=== PATIENT | female | born 1965 | race Caucasian/White ===

== ENCOUNTER → 2016-10-05 | Outpatient (CLI) | payer MEDICAID ==
[2016-10-05 08:41] LABS: ABSOLUTE EOSINOPHILS # (AUTO) 0.2 10^3/uL (0.0-0.6); ABSOLUTE MONOCYTES (AUTO) 0.6 10^3/uL (0.1-1.4); BASOPHILS % (AUTO) 0.6 % (0-2); EOSINOPHILS % (AUTO) 2.6 % (0-6); HEMATOCRIT 40.4 % (36.0-47.0); HEMOGLOBIN 13.4 g/dL (12.0-15.5); HGB HCT DIFFERENCE -0.2; MEAN CORPUSCULAR HEMOGLOBIN 32.8 pg (27.0-33.4); MEAN CORPUSCULAR HGB CONC 33.1 g/dL (32.0-36.0); MEAN CORPUSCULAR VOLUME 99 fl (80-97); RED BLOOD COUNT 4.08 10^6/uL (3.72-5.28); RED CELL DISTRIBUTION WIDTH 13.1 % (11.5-14.0); SEGMENTED NEUTROPHILS % (AUTO) 34.8 % (42-78); WHITE BLOOD COUNT 5.8 10^3/uL (4.0-10.5)
[2016-10-05 09:00] LABS: ALANINE AMINOTRANSFERASE 29 U/L (9-52); ALKALINE PHOSPHATASE 100 U/L (38-126); ANION GAP 10 (5-19); ASPARTATE AMINO TRANSFERASE 22 U/L (14-36); BILIRUBIN,TOTAL 0.4 mg/dL (0.2-1.3); BLOOD UREA NITROGEN 11 mg/dL (7-20); CALCIUM 9.3 mg/dL (8.4-10.2); CARBON DIOXIDE 24 mmol/L (22-30); CHLORIDE 110 mmol/L (98-107); CHOLESTEROL 210.63 mg/dL (0-200); Direct HDL 65 mg/dL (>40); GLUCOSE 98 mg/dL (75-110); POTASSIUM 4.4 mmol/L (3.6-5.0); SODIUM 144.4 mmol/L (137-145); TOTAL PROTEIN 6.8 g/dL (6.3-8.2); TRIGLYCERIDES 145 mg/dL (<150)
[2016-10-05 09:10] LABS: DIRECT LDL 133 mg/dL (<100)
[2016-10-05 09:16] LABS: FREE T3 4.16 pg/mL (2.77-5.27)
[2016-10-05 09:29] LABS: THYROID STIMULATING HORMONE 11.2 uIU/mL (0.47-4.68)
== END ==
LOC: LAB 08:26
PROVIDERS: ATTEND Internal Medicine
DX: R53.83 Other fatigue (principal); E66.9 Obesity, unspecified; R73.9 Hyperglycemia, unspecified; K21.9 Gastro-esophageal reflux disease without esophagitis; I10 Essential (primary) hypertension
CPT/HCPCS: 36415; 80053; 80061; 83036; 84439; 84443; 84481; 85025

== ENCOUNTER → 2016-10-23 | Outpatient (CLI) | payer MEDICAID ==
[2016-10-23 19:10] LABS: FREE T3 3.77 pg/mL (2.77-5.27)
[2016-10-23 19:23] LABS: THYROID STIMULATING HORMONE 3.67 uIU/mL (0.47-4.68)
== END ==
LOC: OD 16:58
PROVIDERS: ATTEND Internal Medicine
DX: E03.9 Hypothyroidism, unspecified (principal)
CPT/HCPCS: 36415; 84439; 84443; 84481

== ENCOUNTER 2016-11-04 18:03 | Emergency (ER) | payer MEDICAID ==
--- NOTE | 2016-11-04 18:13 | ER Document Report ---
ED Medical Screen (RME) - General Stated Complaint: FLU LIKE SYMPTOM Time seen by provider: 18:10 Mode of Arrival: Ambulatory Information source: Patient Notes: 51-year-old nonsmoker female complaining of generalized myalgias, decreased appetite, congestion, shortness of breath, cough and thirst for 4 days. Temp. 102.9 in triage. I have greeted and performed a rapid initial assessment of this patient. A comprehensive ED assessment, evaluation of the patient, analysis of test results , and completion of the medical decision making process will be conducted by additional ED providers. TRAVEL OUTSIDE OF THE [place] IN LAST 30 DAYS: No - Related Data Allergies/Adverse Reactions: codeine [Codeine] Allergy (Severe, Verified 11/04/16 18:10) Generalized Itching latex [Latex] Allergy (Verified 11/04/16 18:10) rash tramadol [Tramadol] Allergy (Verified 11/04/16 18:10) Generalized Itching Past Medical History - Past Medical History Cardiac Medical History: Reports: Hx Hypercholesterolemia - DX A MONTH AGO, Hx Hypertension - on meds Denies: Hx Coronary Artery Disease, Hx Heart Attack Pulmonary Medical History: Denies: Hx Asthma, Hx Bronchitis, Hx COPD, Hx Pneumonia Neurological Medical History: Denies: Hx Cerebrovascular Accident, Hx Seizures Renal/ Medical History: Reports: Hx Kidney Stones, Hx Ovarian Cysts Musculoskeltal Medical History: Reports Hx Arthritis Psychiatric Medical History: Reports: Hx Anxiety - DX A TEENAGERS, Hx Bipolar Disorder - SINCE A TEENAGERS, Hx Depression Past Surgical History: Reports: Hx Adenoidectomy, Hx Orthopedic Surgery - right knee, back, jaw, Hx Tubal Ligation - Immunizations Hx Diphtheria, Pertussis, Tetanus Vaccination: Yes Physical Exam - Vital signs Vitals: Temp Pulse Resp BP Pulse Ox 102.9 F H 96 18 133/82 H 96 11/04/16 18:07 11/04/16 18:07 11/04/16 18:07 11/04/16 18:07 11/04/16 18:07 Course - Vital Signs Vital signs: Temp Pulse Resp BP Pulse Ox 102.9 F H 96 18 133/82 H 96 11/04/16 18:07 11/04/16 18:07 11/04/16 18:07 11/04/16 18:07 11/04/16 18:07
[2016-11-04] MEDS ORDERED: ACETAMINOPHEN 325 MG TABLET PO ONE (18:31)
[2016-11-04 18:34] LABS: ABSOLUTE BASOPHILS # (AUTO) 0.1 10^3/uL (0.0-0.2); ABSOLUTE EOSINOPHILS # (AUTO) 0.2 10^3/uL (0.0-0.6); ABSOLUTE MONOCYTES (AUTO) 0.8 10^3/uL (0.1-1.4); ABSOLUTE NEUT (AUTO) 4.9 10^3/uL (1.7-8.2); BASOPHILS % (AUTO) 0.6 % (0-2); EOSINOPHILS % (AUTO) 2.9 % (0-6); HEMATOCRIT 42.2 % (36.0-47.0); HEMOGLOBIN 13.8 g/dL (12.0-15.5); HGB HCT DIFFERENCE -0.8; LYMPHOCYTES % (AUTO) 25.1 % (13-45); MEAN CORPUSCULAR HEMOGLOBIN 32.2 pg (27.0-33.4); MEAN CORPUSCULAR HGB CONC 32.6 g/dL (32.0-36.0); MEAN CORPUSCULAR VOLUME 99 fl (80-97); MONOCYTES % (AUTO) 10.1 % (3-13); RED BLOOD COUNT 4.27 10^6/uL (3.72-5.28); RED CELL DISTRIBUTION WIDTH 13.6 % (11.5-14.0); SEGMENTED NEUTROPHILS % (AUTO) 61.3 % (42-78); WHITE BLOOD COUNT 8.1 10^3/uL (4.0-10.5)
[2016-11-04 18:38] LABS: APPEARANCE,URINE SLIGHTLY-CLOUDY; BILIRUBIN,URINE NEGATIVE (NEGATIVE); GLUCOSE, URINE NEGATIVE (NEGATIVE); KETONES,URINE NEGATIVE (NEGATIVE); LEUKOCYTE ESTERASE,URINE NEGATIVE (NEGATIVE); NITRITE,URINE NEGATIVE (NEGATIVE); PROTEIN,URINE NEGATIVE (NEGATIVE); URINE SPECIFIC GRAVITY 1.013; UROBILINOGEN,URINE NEGATIVE mg/dL (<2.0)
[2016-11-04 18:53] LABS: ALANINE AMINOTRANSFERASE 45 U/L (9-52); ALBUMIN 3.9 g/dL (3.5-5.0); ALKALINE PHOSPHATASE 125 U/L (38-126); ANION GAP 11 (5-19); ASPARTATE AMINO TRANSFERASE 50 U/L (14-36); BILIRUBIN,TOTAL 0.3 mg/dL (0.2-1.3); BLOOD UREA NITROGEN 14 mg/dL (7-20); CALCIUM 8.9 mg/dL (8.4-10.2); CARBON DIOXIDE 23 mmol/L (22-30); CHLORIDE 108 mmol/L (98-107); GLUCOSE 118 mg/dL (75-110); POTASSIUM 4.4 mmol/L (3.6-5.0); SODIUM 142.1 mmol/L (137-145); TOTAL PROTEIN 7.1 g/dL (6.3-8.2)
[2016-11-04 19:02] LABS: URINE BARBITURATES SCREEN UNCONFIRMED POSITIVE; URINE METHADONE SCREEN NEGATIVE; URINE OPIATES LOW NEGATIVE; URINE PHENCYCLIDINE SCREEN NEGATIVE
[2016-11-04] MEDS ORDERED: NORMAL SALINE 1000 ML 1,000 ML IV ONE ×2 (19:12→20:29)
[2016-11-04] MEDS ORDERED: IBUPROFEN 800 MG TABLET PO ONE (19:34)
--- NOTE | 2016-11-04 19:36 | ER Document Report ---
ED Fever - General Mode of Arrival: Ambulatory Information source: Patient TRAVEL OUTSIDE OF THE [place] IN LAST 30 DAYS: No - HPI Patient complains to provider of: fever Associated symptoms: Other - See above <GALEN ROE - Last Filed: 11/04/16 19:40> <BEA MAO - Last Filed: 11/04/16 21:39> - General Chief Complaint: Fever Stated Complaint: fever Notes: Patient is a 51 year old female, with a past medical history including bipolar disorder and HTN, who presents to the emergency department complaining of fever. Patient also complains of cough, congestion, abdominal pain, and chills. Patient states that she also has chronic back pain and urinary incontinence. Patient states that she did receive a flu shot this year. (GALEN ROE) - Related Data Allergies/Adverse Reactions: codeine [Codeine] Allergy (Severe, Verified 11/04/16 18:10) Generalized Itching latex [Latex] Allergy (Verified 11/04/16 18:10) rash tramadol [Tramadol] Allergy (Verified 11/04/16 18:10) Generalized Itching Past Medical History - General Information source: Patient - Social History Smoking Status: Former Smoker Chew tobacco use (# tins/day): No Frequency of alcohol use: None Drug Abuse: None Family History: Reviewed & Not Pertinent Patient has suicidal ideation: No Patient has homicidal ideation: No - Past Medical History Cardiac Medical History: Reports: Hx Hypercholesterolemia - DX A MONTH AGO, Hx Hypertension - on meds Renal/ Medical History: Reports: Hx Kidney Stones, Hx Ovarian Cysts Musculoskeltal Medical History: Reports Hx Arthritis Psychiatric Medical History: Reports: Hx Anxiety - DX A TEENAGERS, Hx Bipolar Disorder - SINCE A TEENAGERS, Hx Depression Past Surgical History: Reports: Hx Adenoidectomy, Hx Orthopedic Surgery - right knee, back, jaw, Hx Tubal Ligation - Immunizations Hx Diphtheria, Pertussis, Tetanus Vaccination: Yes <GALEN ROE - Last Filed: 11/04/16 19:40> Review of Systems - Review of Systems Constitutional: See HPI, Chills, Fever EENT: See HPI, Nose congestion Cardiovascular: No symptoms reported Respiratory: See HPI, Cough Gastrointestinal: See HPI, Abdominal pain Genitourinary: No symptoms reported Female Genitourinary: No symptoms reported Musculoskeletal: No symptoms reported Skin: No symptoms reported Hematologic/Lymphatic: No symptoms reported Neurological/Psychological: No symptoms reported -: Yes All other systems reviewed and negative <GALEN ROE - Last Filed: 11/04/16 19:40> Physical Exam - Vital signs Interpretation: Normal - General General appearance: Appears well, Alert - HEENT Head: Normocephalic, Atraumatic Eyes: Normal Pupils: PERRL - Respiratory Respiratory status: No respiratory distress Chest status: Nontender Breath sounds: Normal Chest palpation: Normal - Cardiovascular Rhythm: Regular Heart sounds: Normal auscultation Murmur: No - Abdominal Inspection: Normal Distension: No distension Bowel sounds: Normal Tenderness: Nontender Organomegaly: No organomegaly - Back Back: Normal, Nontender - Extremities General upper extremity: Normal inspection, Nontender, Normal color, Normal ROM , Normal temperature General lower extremity: Normal inspection, Nontender, Normal color, Normal ROM , Normal temperature, Normal weight bearing. No: Gui's sign - Neurological Neuro grossly intact: Yes Cognition: Normal Orientation: AAOx4 [place] Coma Scale Eye Opening: Spontaneous Antonio Coma Scale Verbal: Oriented [place] Coma Scale Motor: Obeys Commands Antonio Coma Scale Total: 15 Speech: Normal Motor strength normal: LUE, RUE, LLE, RLE Sensory: Normal - Psychological Associated symptoms: Normal affect, Normal mood - Skin Skin Temperature: Warm Skin Moisture: Dry Skin Color: Normal <GALEN ROE - Last Filed: 11/04/16 19:40> Course - Laboratory Result Diagrams: 11/04/16 18:15 11/04/16 18:15 <GALEN ROE - Last Filed: 11/04/16 19:40> - Laboratory Result Diagrams: 11/04/16 18:15 11/04/16 18:15 <BEA MAO - Last Filed: 11/04/16 21:39> - Vital Signs Vital signs: Temp Pulse Resp BP Pulse Ox 101.8 F H 96 20 87/63 L 95 11/04/16 19:30 11/04/16 18:07 11/04/16 20:01 11/04/16 20:01 11/04/16 20:01 - Laboratory Laboratory results interpreted by me: 11/04/16 11/04/16 18:15 18:15 MCV 99 H Chloride 108 H Est GFR (Non-Af Amer) 59 L Glucose 118 H AST 50 H Discharge <GALEN ROE - Last Filed: 11/04/16 19:40> <BEA MAO - Last Filed: 11/04/16 21:39> - Discharge Clinical Impression: Influenza A Condition: Stable Disposition: HOME, SELF-CARE Instructions: Influenza ([facility]), Fever ([facility]) Referrals: GUILLERMO GAINES MD [Primary Care Provider] - 11/06/16 Scribe Documentation - Scribe Written by Derek:: derek Win, 11/04/16, 1941 acting as scribe for :: Willis <GALEN ROE - Last Filed: 11/04/16 19:40>
[2016-11-04 21:57] VITALS: BP 104/65
--- NOTE | 2016-11-04 23:23 | ER Document Report ---
ED Fever - General Chief Complaint: Fever Stated Complaint: FLU LIKE SYMPTOM Mode of Arrival: Ambulatory Notes: Patient is a 51 year old female, with a past medical history including bipolar disorder and HTN, who presents to the emergency department complaining of fever. Patient also complains of cough, congestion, abdominal pain, and chills. Patient states that she also has chronic back pain and urinary incontinence. Patient states that she did receive a flu shot this year. TRAVEL OUTSIDE OF THE [place] IN LAST 30 DAYS: No - Related Data Allergies/Adverse Reactions: codeine [Codeine] Allergy (Severe, Verified 11/04/16 18:10) Generalized Itching latex [Latex] Allergy (Verified 11/04/16 18:10) rash tramadol [Tramadol] Allergy (Verified 11/04/16 18:10) Generalized Itching Past Medical History - General Information source: Patient - Social History Smoking Status: Former Smoker Chew tobacco use (# tins/day): No Frequency of alcohol use: None Drug Abuse: None Family History: Reviewed & Not Pertinent Patient has suicidal ideation: No Patient has homicidal ideation: No - Past Medical History Cardiac Medical History: Reports: Hx Hypercholesterolemia - DX A MONTH AGO, Hx Hypertension - on meds Denies: Hx Coronary Artery Disease, Hx Heart Attack Pulmonary Medical History: Denies: Hx Asthma, Hx Bronchitis, Hx COPD, Hx Pneumonia Neurological Medical History: Denies: Hx Cerebrovascular Accident, Hx Seizures Renal/ Medical History: Reports: Hx Kidney Stones, Hx Ovarian Cysts. Denies: Hx Peritoneal Dialysis Musculoskeltal Medical History: Reports Hx Arthritis Psychiatric Medical History: Reports: Hx Anxiety - DX A TEENAGERS, Hx Bipolar Disorder - SINCE A TEENAGERS, Hx Depression Past Surgical History: Reports: Hx Adenoidectomy, Hx Orthopedic Surgery - right knee, back, jaw, Hx Tubal Ligation - Immunizations Hx Diphtheria, Pertussis, Tetanus Vaccination: Yes Review of Systems - Review of Systems -: Yes All other systems reviewed and negative Physical Exam - Vital signs Vitals: Temp Pulse Resp BP Pulse Ox 102.9 F H 96 18 133/82 H 96 11/04/16 18:07 11/04/16 18:07 11/04/16 18:07 11/04/16 18:07 11/04/16 18:07 Interpretation: Tachycardic, Febrile - General General appearance: Alert In distress: Mild - Respiratory Respiratory status: No respiratory distress Breath sounds: Normal - Cardiovascular Rhythm: Regular, Tachycardia - Abdominal Inspection: Normal Tenderness: Nontender - Back Back: Normal, Nontender - Extremities General upper extremity: Normal inspection, Normal ROM General lower extremity: Normal inspection, Normal ROM - Neurological Cognition: Confused Antonio Coma Scale Eye Opening: Spontaneous Antonio Coma Scale Verbal: Confused [place] Coma Scale Motor: Obeys Commands Antonio Coma Scale Total: 14 - Skin Skin Temperature: Hot Course - Re-evaluation Re-evalutation: 11/04/16 Patient is a 51-year-old female who comes in with fever and initial confusion. Resolved this her fever had resolved. Patient has been hydrated. No respiratory distress. Patient is influenza a positive. Feels better after medications and fluids. She is instructed to take medications for fever at home. Patient has had the symptoms for a few days and is not in the time frame for Tamiflu. Patient was ambulated and maintained her oxygen saturations. No lightheadedness. Vital stable. Patient is to follow-up with her primary care doctor and return immediately if she has any worsening or concerning symptoms. Of note, patient cyst x-ray said possible infiltrate. Clinically, the patient does not sound like she has pneumonia. - Vital Signs Vital signs: Temp Pulse Resp BP Pulse Ox 98.7 F 96 15 104/65 95 11/04/16 22:01 11/04/16 18:07 11/04/16 21:19 11/04/16 21:19 11/04/16 21:19 - Laboratory Result Diagrams: 11/04/16 18:15 11/04/16 18:15 Laboratory results interpreted by me: 11/04/16 11/04/16 18:15 18:15 MCV 99 H Chloride 108 H Est GFR (Non-Af Amer) 59 L Glucose 118 H AST 50 H - Diagnostic Test Radiology reviewed: Image reviewed, Reports reviewed Discharge - Discharge Clinical Impression: Influenza A Condition: Stable Disposition: HOME, SELF-CARE Instructions: Fever ([facility]), Influenza ([facility]) Referrals: GUILLERMO GAINES MD [Primary Care Provider] - 11/06/16
== END 2016-11-04 22:01 | disposition home or self-care (01) ==
LOC: ER 18:03
DX: J11.1 Influenza due to unidentified influenza virus with other respiratory manifestations (principal); I10 Essential (primary) hypertension; R41.0 Disorientation, unspecified; R50.9 Fever, unspecified; R00.0 Tachycardia, unspecified; R05 Cough; R10.9 Unspecified abdominal pain; R32 Unspecified urinary incontinence; M54.9 Dorsalgia, unspecified; G89.29 Other chronic pain; Z88.5 Allergy status to narcotic agent; Z91.040 Latex allergy status; Z87.891 Personal history of nicotine dependence; Z87.442 Personal history of urinary calculi; Z87.42 Personal history of other diseases of the female genital tract; Z98.51 Tubal ligation status
CPT/HCPCS: 99284; 36415; 87040; 87086; 85025; 80053; 81001; 80307; 83605; 87804; 71020; 70450; J3490 ×2; J7030

== ENCOUNTER → 2017-01-30 | Outpatient (CLI) | payer MEDICAID ==
[2017-01-30 11:58] LABS: HEMATOCRIT 41.3 % (36.0-47.0); HEMOGLOBIN 13.6 g/dL (12.0-15.5); HGB HCT DIFFERENCE -0.5; MEAN CORPUSCULAR HEMOGLOBIN 32.2 pg (27.0-33.4); MEAN CORPUSCULAR HGB CONC 32.9 g/dL (32.0-36.0); MEAN CORPUSCULAR VOLUME 98 fl (80-97); RED BLOOD COUNT 4.21 10^6/uL (3.72-5.28); RED CELL DISTRIBUTION WIDTH 14.4 % (11.5-14.0); WHITE BLOOD COUNT 5.7 10^3/uL (4.0-10.5)
[2017-01-30 12:14] LABS: ANION GAP 11 (5-19); BLOOD UREA NITROGEN 13 mg/dL (7-20); CALCIUM 9.6 mg/dL (8.4-10.2); CARBON DIOXIDE 22 mmol/L (22-30); CHLORIDE 110 mmol/L (98-107); CREATININE RESULT 0.87 mg/dL (0.52-1.25); Direct HDL 52 mg/dL (>40); GLUCOSE 90 mg/dL (75-110); POTASSIUM 4.3 mmol/L (3.6-5.0); SODIUM 143.3 mmol/L (137-145); TRIGLYCERIDES 125 mg/dL (<150)
[2017-01-30 12:25] LABS: DIRECT LDL 161 mg/dL (<100)
[2017-01-30 13:20] LABS: FOLATE 5.91 ng/mL (>2.76)
[2017-01-31 07:20] LABS: VITAMIN D 25-HYDROXY 19.2 ng/mL (30.0-100.0)
[2017-01-31 14:55] LABS: VITAMIN D 1,25 DIHYDROXY 24.3 pg/mL (19.9-79.3)
== END ==
LOC: LAB 11:15
DX: F31.70 Bipolar disorder, currently in remission, most recent episode unspecified (principal); Z79.899 Other long term (current) drug therapy
CPT/HCPCS: 36415; 80048; 80061; 82306; 82607; 82652; 82746; 83036; 84439; 84443; 85027

== ENCOUNTER 2017-02-21 17:17 | Emergency (ER) | payer MEDICAID ==
[2017-02-21] MEDS ORDERED: IPRATROPIUM/ALBUTEROL 0.5-2.5 MG/3 ML AMPUL NEB ONE (18:47)
--- NOTE | 2017-02-21 18:50 | ER Document Report ---
ED Medical Screen (RME) - General Chief Complaint: Chest Congestion Stated Complaint: FEVER, COUGHING Time Seen by Provider: 02/21/17 18:47 Mode of Arrival: Ambulatory Information source: Patient Notes: 52-year-old female presents with fever, coughing, headache and chest wall pain. TRAVEL OUTSIDE OF THE [place] IN LAST 30 DAYS: No - Related Data Allergies/Adverse Reactions: codeine [Codeine] Allergy (Severe, Verified 02/21/17 17:22) Generalized Itching latex [Latex] Allergy (Verified 02/21/17 17:22) rash tramadol [Tramadol] Allergy (Verified 02/21/17 17:22) Generalized Itching Past Medical History - Past Medical History Cardiac Medical History: Reports: Hx Hypercholesterolemia - DX A MONTH AGO, Hx Hypertension - on meds Denies: Hx Coronary Artery Disease, Hx Heart Attack Pulmonary Medical History: Denies: Hx Asthma, Hx Bronchitis, Hx COPD, Hx Pneumonia Neurological Medical History: Denies: Hx Cerebrovascular Accident, Hx Seizures Renal/ Medical History: Reports: Hx Kidney Stones, Hx Ovarian Cysts. Denies: Hx Peritoneal Dialysis Musculoskeltal Medical History: Reports Hx Arthritis Psychiatric Medical History: Reports: Hx Anxiety - DX A TEENAGERS, Hx Bipolar Disorder - SINCE A TEENAGERS, Hx Depression Past Surgical History: Reports: Hx Adenoidectomy, Hx Orthopedic Surgery - right knee, back, jaw, Hx Tubal Ligation - Immunizations Hx Diphtheria, Pertussis, Tetanus Vaccination: Yes Physical Exam - Vital signs Vitals: Temp Pulse Resp BP Pulse Ox 98.6 F 88 22 H 130/75 H 98 02/21/17 17:22 02/21/17 17:22 02/21/17 17:22 02/21/17 17:22 02/21/17 17:22 Course - Vital Signs Vital signs: Temp Pulse Resp BP Pulse Ox 98.6 F 88 22 H 130/75 H 98 02/21/17 17:22 02/21/17 17:22 02/21/17 17:22 02/21/17 17:22 02/21/17 17:22
[2017-02-21 19:07] LABS: ABSOLUTE BASOPHILS # (AUTO) 0.1 10^3/uL (0.0-0.2); ABSOLUTE LYMPHOCYTES (AUTO) 2.5 10^3/uL (0.5-4.7); ABSOLUTE MONOCYTES (AUTO) 1.4 10^3/uL (0.1-1.4); ABSOLUTE NEUT (AUTO) 14.9 10^3/uL (1.7-8.2); BASOPHILS % (AUTO) 0.3 % (0-2); EOSINOPHILS % (AUTO) 0.1 % (0-6); HEMATOCRIT 39.5 % (36.0-47.0); HEMOGLOBIN 12.9 g/dL (12.0-15.5); HGB HCT DIFFERENCE -0.8; LYMPHOCYTES % (AUTO) 13.5 % (13-45); MEAN CORPUSCULAR HEMOGLOBIN 31.8 pg (27.0-33.4); MEAN CORPUSCULAR HGB CONC 32.6 g/dL (32.0-36.0); MEAN CORPUSCULAR VOLUME 98 fl (80-97); MONOCYTES % (AUTO) 7.2 % (3-13); RED BLOOD COUNT 4.05 10^6/uL (3.72-5.28); RED CELL DISTRIBUTION WIDTH 14.4 % (11.5-14.0); SEGMENTED NEUTROPHILS % (AUTO) 78.9 % (42-78); WHITE BLOOD COUNT 18.9 10^3/uL (4.0-10.5)
[2017-02-21 19:25] LABS: ALANINE AMINOTRANSFERASE 30 U/L (9-52); ALBUMIN 3.6 g/dL (3.5-5.0); ALKALINE PHOSPHATASE 90 U/L (38-126); ANION GAP 11 (5-19); ASPARTATE AMINO TRANSFERASE 28 U/L (14-36); BILIRUBIN,DIRECT 0.3 mg/dL (0.0-0.4); BILIRUBIN,TOTAL 0.4 mg/dL (0.2-1.3); BLOOD UREA NITROGEN 11 mg/dL (7-20); CALCIUM 8.9 mg/dL (8.4-10.2); CARBON DIOXIDE 20 mmol/L (22-30); CHLORIDE 111 mmol/L (98-107); CREATININE RESULT 0.92 mg/dL (0.52-1.25); GLUCOSE 85 mg/dL (75-110); POTASSIUM 4.3 mmol/L (3.6-5.0); SODIUM 141.9 mmol/L (137-145); TOTAL PROTEIN 6.6 g/dL (6.3-8.2)
--- NOTE | 2017-02-21 20:04 | RADIOLOGY REPORT (SQ) ---
EXAM DESCRIPTION: CHEST PA/LAT COMPLETED DATE/TIME: 02/21/2017 7:30 pm REASON FOR STUDY: cough COMPARISON: 11/04/2016 EXAM PARAMETERS: NUMBER OF VIEWS: two views TECHNIQUE: Digital Frontal and Lateral radiographic views of the chest acquired. RADIATION DOSE: NA LIMITATIONS: none FINDINGS: LUNGS AND PLEURA: Increased airspace-interstitial markings at in the right mid and lower l tha seen best on the frontal projection. Left lung appears clear. No pleural effusion. MEDIASTINUM AND HILAR STRUCTURES: Stable. HEART AND VASCULAR STRUCTURES: Stable. BONES: No acute findings. HARDWARE: Lower cervical fusion hardware appear stable. OTHER: No other significant finding. IMPRESSION: Increased airspace-interstitial markings at in the right mid and lower lung, this may re flect recurrent infectious process. Follow-up radiograph is recommended in 4 weeks to assess for res olution. TECHNICAL DOCUMENTATION: JOB ID: [id number] [employer]- All Rights Reserved
[2017-02-21] MEDS ORDERED: LEVOFLOXACIN 750 MG TABLET PO ONE (20:15)
--- NOTE | 2017-02-21 20:15 | ER Document Report ---
ED General - General Chief Complaint: Chest Congestion Stated Complaint: FEVER, COUGHING Time Seen by Provider: 02/21/17 18:47 Mode of Arrival: Ambulatory Notes: patient is a 52-year-old female that comes emergency department for chief complaint of productive cough since yesterday, she states she awoke today with chills, she states she has had a fever of 101, she states she hurts all over. Patient states she also felt short of breath earlier but this has improved. She states she felt she was wheezing but this resolved after a treatment. She denies worsening symptoms or difficulty breathing with ambulation. Patient denies history of COPD, asthma, pneumonia. She is a former smoker, stopped in 2008. Past medical history of hypertension, hyperlipidemia, bipolar. TRAVEL OUTSIDE OF THE [place] IN LAST 30 DAYS: No - Related Data Allergies/Adverse Reactions: codeine [Codeine] Allergy (Severe, Verified 02/21/17 17:22) Generalized Itching latex [Latex] Allergy (Verified 02/21/17 17:22) rash tramadol [Tramadol] Allergy (Verified 02/21/17 17:22) Generalized Itching Past Medical History - General Information source: Patient - Social History Smoking Status: Former Smoker Frequency of alcohol use: None Drug Abuse: None Lives with: Family Family History: Reviewed & Not Pertinent Patient has suicidal ideation: No Patient has homicidal ideation: No - Past Medical History Cardiac Medical History: Reports: Hx Hypercholesterolemia - DX A MONTH AGO, Hx Hypertension - on meds Denies: Hx Coronary Artery Disease, Hx Heart Attack Pulmonary Medical History: Denies: Hx Asthma, Hx Bronchitis, Hx COPD, Hx Pneumonia Neurological Medical History: Denies: Hx Cerebrovascular Accident, Hx Seizures Renal/ Medical History: Reports: Hx Kidney Stones, Hx Ovarian Cysts. Denies: Hx Peritoneal Dialysis Musculoskeltal Medical History: Reports Hx Arthritis Psychiatric Medical History: Reports: Hx Anxiety - DX A TEENAGERS, Hx Bipolar Disorder - SINCE A TEENAGERS, Hx Depression Past Surgical History: Reports: Hx Adenoidectomy, Hx Orthopedic Surgery - right knee, back, jaw, Hx Tubal Ligation - Immunizations Hx Diphtheria, Pertussis, Tetanus Vaccination: Yes Review of Systems - Review of Systems Constitutional: See HPI EENT: No symptoms reported Cardiovascular: No symptoms reported Respiratory: See HPI Gastrointestinal: No symptoms reported Genitourinary: No symptoms reported Female Genitourinary: No symptoms reported Musculoskeletal: No symptoms reported Skin: No symptoms reported Hematologic/Lymphatic: No symptoms reported Neurological/Psychological: No symptoms reported Physical Exam - Vital signs Vitals: Temp Pulse Resp BP Pulse Ox 98.6 F 88 22 H 130/75 H 98 02/21/17 17:22 02/21/17 17:22 02/21/17 17:22 02/21/17 17:22 02/21/17 17:22 Interpretation: Normal - General General appearance: Appears well, Alert In distress: None - patient appears slightly tired, but she is in no distress - HEENT Head: Normocephalic, Atraumatic Eyes: Normal Pupils: PERRL - Respiratory Respiratory status: No respiratory distress. No: Labored, Retractions, Tachypnea Chest status: Nontender Breath sounds: Normal, Nonproductive cough - Occasional congested sounding nonproductive cough, otherwise unremarkable. No: Productive cough, Rales, Rhonchi, Stridor, Wheezing Chest palpation: Normal - Cardiovascular Rhythm: Regular. No: Tachycardia Heart sounds: Normal auscultation, S1 appreciated, S2 appreciated Murmur: No - Abdominal Inspection: Normal Distension: No distension Bowel sounds: Normal Tenderness: Nontender Organomegaly: No organomegaly - Back Back: Normal, Nontender - Extremities General upper extremity: Normal inspection, Nontender, Normal color, Normal ROM , Normal temperature General lower extremity: Normal inspection, Nontender, Normal color, Normal ROM , Normal temperature, Normal weight bearing. No: Gui's sign - Neurological Neuro grossly intact: Yes Cognition: Normal Orientation: AAOx4 [place] Coma Scale Eye Opening: Spontaneous [place] Coma Scale Verbal: Oriented [place] Coma Scale Motor: Obeys Commands [place] Coma Scale Total: 15 Speech: Normal Cranial nerves: Normal Motor strength normal: LUE, RUE, LLE, RLE Sensory: Normal - Psychological Associated symptoms: Normal affect, Normal mood - Skin Skin Temperature: Warm Skin Moisture: Dry Skin Color: Normal Course - Re-evaluation Re-evalutation: Patient with occasional congested sounding cough, CBC shows leukocytosis at 18.9 with elevation of neutrophils, no bandemia. On my examination patient has clear lungs on auscultation, no tachypnea, she appears mildly ill-appearing but does not appear toxic. She is in no distress. Chest x-ray is consistent with right-sided mid to lower pneumonia. Similar appearance on previous chest x-ray, however patient appears slightly ill and has symptoms consistent clinically with pneumonia. History generally unremarkable with very slightly low bicarbonate and normal anion gap, patient is not tachycardic, she states she is staying hydrated. No hypotension or fever. 02/21/17 21:32 On reevaluation the patient to be well-appearing, no tachypnea, no difficulty breathing, normal lung auscultation, occasional congested cough. Patient performed ambulation with pulse oxygenation without any labored breathing, tachypnea, or hypoxia. Discussed treatment with Levaquin, symptom management, close primary care follow-up, patient states agreement with this plan, states she is ready to leave. I did also discuss potential use of prednisone, patient states that she wants to try without it because this gives her manic symptoms with her bipolar. Discussed follow-up, discussed return precautions in detail, patient states understanding and agreement. - Vital Signs Vital signs: Temp Pulse Resp BP Pulse Ox 99.9 F 82 18 116/64 96 02/21/17 21:28 02/21/17 21:28 02/21/17 21:28 02/21/17 21:28 02/21/17 21:28 - Laboratory Result Diagrams: 02/21/17 18:50 02/21/17 18:50 Laboratory results interpreted by me: 02/21/17 02/21/17 18:50 18:50 WBC 18.9 H MCV 98 H RDW 14.4 H Seg Neutrophils % 78.9 H Absolute Neutrophils 14.9 H Chloride 111 H Carbon Dioxide 20 L Discharge - Discharge Clinical Impression: Productive cough Pneumonia Qualifiers: Pneumonia type: due to unspecified organism Laterality: right Lung location: unspecified part of lung Qualified Code(s): J18.9 - Pneumonia, unspecified organism Fever Qualifiers: Fever type: unspecified Qualified Code(s): R50.9 - Fever, unspecified Condition: Stable Disposition: HOME, SELF-CARE Additional Instructions: Your chest x-ray does indicate what appears to be pneumonia. Your blood work is consistent with this. Take the Levaquin antibiotic as directed, take phenergan for nausea if needed, take tessalon for cough Take tylenol or ibuprofen for fever/chills, rest. Follow up with your provider in the next 2-3 days. Return to the ED for any concerning or worsening symptoms - difficulty breathing , vomiting, etc. Prescriptions: Benzonatate [Tessalon Perle 100 mg Capsule] 100 mg PO Q8HP PRN #20 cap PRN Reason: Levofloxacin [Levaquin 750 mg Tablet] 750 mg PO DAILY #4 tab Promethazine HCl [Phenergan 25 mg Tablet] 1 - 2 tab PO Q6H PRN #15 tablet PRN Reason: Referrals: GUILLERMO GAINES MD [Primary Care Provider] - Follow up as needed
[2017-02-21] MEDS ORDERED: BENZONATATE 100 MG CAPSULE PO ONE (20:16)
[2017-02-21] MEDS ORDERED: PROMETHAZINE HCL 25 MG TABLET PO ONE (20:16)
[2017-02-21 21:30] VITALS: BP 116/64
== END 2017-02-21 21:40 | disposition home or self-care (01) ==
LOC: ER 17:17
DX: J18.1 Lobar pneumonia, unspecified organism (principal); R05 Cough; R50.9 Fever, unspecified; E78.00 Pure hypercholesterolemia, unspecified; Z91.040 Latex allergy status; Z88.6 Allergy status to analgesic agent; Z98.51 Tubal ligation status; Z87.442 Personal history of urinary calculi
CPT/HCPCS: 94640; 99283; 36415; 85025; 80053; 71020; J3490 ×3; J7620

== ENCOUNTER → 2017-04-27 | Outpatient (CLI) | payer MEDICAID ==
--- NOTE | 2017-04-27 12:06 | RADIOLOGY REPORT (SQ) ---
EXAM DESCRIPTION: U/S ABDOMEN LIMITED W/O DOP COMPLETED DATE/TIME: 04/27/2017 11:17 am REASON FOR STUDY: ABD PAIN (R19.01), NAUSEA (R11.0) R19.01 RIGHT UPPER QUADRANT ABDOMINAL SWELLING, MASS AND LUM R11.0 NAUSEA COMPARISON: None. TECHNIQUE: Dynamic and static grayscale images acquired of the right upper quadrant and recorded on PACS. Additional selected color Doppler and spectral images recorded. LIMITATIONS: Study limited due to acoustical interference from fat or from air in the bowel. FINDINGS: PANCREAS: Visualized pancreas and duct normal. Parts of pancreas poorly seen secondary to acoustical interference from fat or from air in the bowel. LIVER: No masses. Echotexture normal. LIVER VASCULATURE: Normal directional flow of the main portal vein and hepatic veins. GALLBLADDER: No stones. Normal wall thickness. No pericholecystic fluid. ULTRASOUND-DETECTED BLISS'S SIGN: Negative. INTRAHEPATIC DUCTS AND COMMON DUCT: CBD and intrahepatic ducts normal caliber. No filling defects. INFERIOR VENA CAVA: Normal flow. AORTA: No aneurysm. RIGHT KIDNEY: Normal size. Normal echogenicity. No solid or suspicious masses. No hydronephrosis. No calcifications. PERITONEAL CAVITY AND RIGHT PLEURAL SPACE: No ascites or effusions. OTHER: No other significant finding. IMPRESSION: No evidence of cholecystitis. TECHNICAL DOCUMENTATION: JOB ID: [id number] [facility]- All Rights Reserved
== END ==
LOC: RAD 10:37
PROVIDERS: ATTEND Family Medicine Geriatric Medicine
DX: R19.01 Right upper quadrant abdominal swelling, mass and lump (principal)
CPT/HCPCS: 76705

== ENCOUNTER 2017-05-10 08:21 | Outpatient (CLI) | payer MEDICAID ==
[~2017-05-10 08:21] MED LIST: FERRIC CARBOXYMALTOSE 750 MG in NORMAL SALINE 250 ML IV PRN; NORMAL SALINE 250 ML IV PRN
[2017-05-10 08:51] VITALS: BP 133/86
== END 2017-05-10 09:13 | disposition home or self-care (01) ==
LOC: II 08:21 → 5TH 08:26 → II 09:13
PROVIDERS: ATTEND Internal Medicine
PROC: 3E033GC Introduction of Other Therapeutic Substance into Peripheral Vein, Percutaneous Approach (ICD-10-PCS; principal; 2017-05-10)
DX: D50.9 Iron deficiency anemia, unspecified (principal); K90.9 Intestinal malabsorption, unspecified
CPT/HCPCS: 96374; J7050; J1439; 96367

== ENCOUNTER 2017-05-15 08:09 | Emergency (ER) | payer MEDICAID ==
[2017-05-15] MEDS ORDERED: NORMAL SALINE 1000 ML 1,000 ML IV ONE (08:38)
[2017-05-15] MEDS ORDERED: ONDANSETRON HCL INJ/PF 4 MG/2 ML SDV IV ONE (08:38)
--- NOTE | 2017-05-15 08:48 | ER Document Report ---
ED General - General Chief Complaint: Flu Symptoms Stated Complaint: COUGH Time Seen by Provider: 05/15/17 08:24 TRAVEL OUTSIDE OF THE [place] IN LAST 30 DAYS: No - HPI Notes: 52-year-old female with history of prior hysterectomy, bipolar disorder presents with 2 weeks of illness. Started initially with nausea and vomiting that seems to continue to recur. It is there fairly constant with episodes daily of vomiting. There is no hematemesis. She has been having loose stools as well. Reports temperature of 99 which she states is very high for her. She does have cough with purulent green sputum as well. She has seen her primary care physician is been placed on Prilosec and Mylanta without improvement. She states she just generally feels bad and hurts all over. She does have chronic neck and back pain but this does not new for her. She presents to the emergency department after having a negative abdominal CT April 27. She has not had further evaluation since that period of time. She has associated upper abdominal pain that is fairly nondescript. It is more central. - Related Data Allergies/Adverse Reactions: codeine [Codeine] Allergy (Severe, Verified 05/15/17 08:16) Generalized Itching latex [Latex] Allergy (Verified 05/15/17 08:16) rash tramadol [Tramadol] Allergy (Verified 05/15/17 08:16) Generalized Itching Past Medical History - Social History Smoking Status: Never Smoker Family History: Reviewed & Not Pertinent - Past Medical History Cardiac Medical History: Reports: Hx Hypercholesterolemia - DX A MONTH AGO, Hx Hypertension - on meds Denies: Hx Coronary Artery Disease, Hx Heart Attack Pulmonary Medical History: Denies: Hx Asthma, Hx Bronchitis, Hx COPD, Hx Pneumonia Neurological Medical History: Denies: Hx Cerebrovascular Accident, Hx Seizures Renal/ Medical History: Reports: Hx Kidney Stones, Hx Ovarian Cysts. Denies: Hx Peritoneal Dialysis Musculoskeltal Medical History: Reports Hx Arthritis Psychiatric Medical History: Reports: Hx Anxiety - DX A TEENAGERS, Hx Bipolar Disorder - SINCE A TEENAGERS, Hx Depression Past Surgical History: Reports: Hx Adenoidectomy, Hx Orthopedic Surgery - right knee, back, jaw, Hx Tubal Ligation - Immunizations Hx Diphtheria, Pertussis, Tetanus Vaccination: Yes Review of Systems - Review of Systems -: Yes All other systems reviewed and negative Physical Exam - Vital signs Vitals: Temp Pulse Resp BP Pulse Ox 97.8 F 77 18 129/92 H 100 05/15/17 08:14 05/15/17 08:14 05/15/17 08:14 05/15/17 08:14 05/15/17 08:14 - Notes Notes: GENERAL: VS as per nursing doc. Well-appearing, well-nourished and in no acute distress though is very tearful describing her symptoms. HEAD: Atraumatic, normocephalic. EYES: Pupils equal round and reactive to light, extraocular movements intact, sclera anicteric, no conjunctival injection or discharge. ENT: Nares patent, oropharynx clear without exudates, slightly dry mucous membranes. NECK: Normal range of motion, supple without lymphadenopathy. LUNGS: Breath sounds clear to auscultation bilaterally and equal. No wheezes rales or rhonchi. HEART: Regular rate and rhythm without murmurs. ABDOMEN: Soft, mild diffuse upper abdominal tenderness slightly more in the right upper quadrant, normoactive bowel sounds. No guarding, no rebound. No masses appreciated. No [place] sign. BACK: No CVA tenderness. EXTREMITIES: Normal range of motion, no calf tenderness, no edema. NEUROLOGICAL: Cranial nerves grossly intact. Normal speech. Normal sensory and motor exams. No gross cerebellar abnormalities. PSYCH: Very tearful, appears upset crying multiple times during the exam discussing how bad she feels. SKIN: Warm, dry, normal turgor, no lesions noted. Course - Re-evaluation Re-evalutation: 05/15/17 12:50 Reviewed findings with the patient. Abdominal CT essentially negative. Discussed findings with her. As she has had a long duration of cough and green sputum we will place her on some antibiotics and otherwise treat her symptomatically and have her follow-up with GI as an outpatient. She voices understanding and is comfortable with follow-up. - Vital Signs Vital signs: Temp Pulse Resp BP Pulse Ox 97.8 F 77 18 129/92 H 100 05/15/17 08:14 05/15/17 08:14 05/15/17 08:14 05/15/17 08:14 05/15/17 08:14 - Laboratory Result Diagrams: 05/15/17 09:20 05/15/17 09:20 Laboratory results interpreted by me: 05/15/17 05/15/17 09:20 09:20 MCV 99 H MCH 33.6 H Chloride 111 H Discharge - Discharge Clinical Impression: Abdominal pain, Vomiting, Bronchitis Condition: Good Disposition: HOME, SELF-CARE Instructions: Abdominal Pain ([facility]), Antispasmodics ([facility]) Additional Instructions: Return for emergency or concern. Contact your physicians office for follow-up as well as gastroenterology. Increase the Prilosec to 20 mg twice daily. Prescriptions: Hyoscyamine Sulfate [Levsin 0.125 Tablet] 0.125 - 0.25 mg PO Q6HP PRN #12 tablet PRN Reason: For Abdominal Pain Amoxicillin Trihydrate [Amoxil 500 mg Capsule] 500 mg PO TID #30 cap Ondansetron [Zofran Odt 4 mg Tablet] 1 - 2 tab PO Q4H PRN #15 tab.rapdis PRN Reason: For Nausea/Vomiting Referrals: GUILLERMO GAINES MD [Primary Care Provider] - Follow up in 1 week EUGENIO CURTIS MD [ACTIVE STAFF] - Follow up in 1 week
[2017-05-15 09:31] LABS: APPEARANCE,URINE CLEAR; BILIRUBIN,URINE NEGATIVE (NEGATIVE); GLUCOSE, URINE NEGATIVE (NEGATIVE); KETONES,URINE NEGATIVE (NEGATIVE); LEUKOCYTE ESTERASE,URINE NEGATIVE (NEGATIVE); NITRITE,URINE NEGATIVE (NEGATIVE); PROTEIN,URINE NEGATIVE (NEGATIVE); URINE SPECIFIC GRAVITY 1.017; UROBILINOGEN,URINE NEGATIVE mg/dL (<2.0)
[2017-05-15 09:48] LABS: ABSOLUTE EOSINOPHILS # (AUTO) 0.1 10^3/uL (0.0-0.6); ABSOLUTE LYMPHOCYTES (AUTO) 2.4 10^3/uL (0.5-4.7); ABSOLUTE MONOCYTES (AUTO) 0.5 10^3/uL (0.1-1.4); ABSOLUTE NEUT (AUTO) 3.1 10^3/uL (1.7-8.2); BASOPHILS % (AUTO) 0.7 % (0-2); HEMATOCRIT 41.2 % (36.0-47.0); HEMOGLOBIN 14.1 g/dL (12.0-15.5); HGB HCT DIFFERENCE 1.1; LYMPHOCYTES % (AUTO) 39.5 % (13-45); MEAN CORPUSCULAR HEMOGLOBIN 33.6 pg (27.0-33.4); MEAN CORPUSCULAR HGB CONC 34.1 g/dL (32.0-36.0); MEAN CORPUSCULAR VOLUME 99 fl (80-97); MONOCYTES % (AUTO) 8.4 % (3-13); RED BLOOD COUNT 4.18 10^6/uL (3.72-5.28); RED CELL DISTRIBUTION WIDTH 13.9 % (11.5-14.0); SEGMENTED NEUTROPHILS % (AUTO) 50.4 % (42-78)
--- NOTE | 2017-05-15 10:03 | RADIOLOGY REPORT (SQ) ---
EXAM DESCRIPTION: CHEST PA/LAT COMPLETED DATE/TIME: 05/15/2017 9:54 am REASON FOR STUDY: Cough, Fever COMPARISON: Two-view chest 02/21/2017 EXAM PARAMETERS: NUMBER OF VIEWS: two views TECHNIQUE: Digital Frontal and Lateral radiographic views of the chest acquired. RADIATION DOSE: NA LIMITATIONS: none FINDINGS: LUNGS AND PLEURA: No opacities, masses or pneumothorax. No pleural effusion. MEDIASTINUM AND HILAR STRUCTURES: No masses or contour abnormalities. HEART AND VASCULAR STRUCTURES: Heart normal size. No evidence for failure. BONES: Lower cervical fusion hardware HARDWARE: None in the chest. OTHER: No other significant finding. IMPRESSION: NO SIGNIFICANT RADIOGRAPHIC FINDING IN THE CHEST. TECHNICAL DOCUMENTATION: JOB ID: [id number] [employer]- All Rights Reserved
[2017-05-15 10:05] LABS: ALANINE AMINOTRANSFERASE 26 U/L (9-52); ALKALINE PHOSPHATASE 104 U/L (38-126); ANION GAP 9 (5-19); ASPARTATE AMINO TRANSFERASE 22 U/L (14-36); BILIRUBIN,DIRECT 0.3 mg/dL (0.0-0.4); BILIRUBIN,TOTAL 0.3 mg/dL (0.2-1.3); BLOOD UREA NITROGEN 13 mg/dL (7-20); CARBON DIOXIDE 23 mmol/L (22-30); CHLORIDE 111 mmol/L (98-107); CREATININE RESULT 0.89 mg/dL (0.52-1.25); GLUCOSE 94 mg/dL (75-110); LIPASE 44.8 U/L (23-300); POTASSIUM 3.9 mmol/L (3.6-5.0); SODIUM 143.3 mmol/L (137-145); TOTAL PROTEIN 6.8 g/dL (6.3-8.2)
--- NOTE | 2017-05-15 11:59 | RADIOLOGY REPORT (SQ) ---
EXAM DESCRIPTION: CT ABD/PELVIS WITH IV ORAL COMPLETED DATE/TIME: 05/15/2017 11:43 am REASON FOR STUDY: Abd pain, Vomiting COMPARISON: 08/24/2014 TECHNIQUE: CT scan of the abdomen and pelvis performed using helical scanning technique with dynamic intravenous contrast injection. Oral contrast. Images reviewed with lung, soft tissue, and bone win dows. Reconstructed coronal and sagittal MPR images reviewed. Delayed images for evaluation of the ur inary system also acquired. All images stored on PACS. All CT scanners at this facility use dose modulation, iterative reconstruction, and/or weight based d osing when appropriate to reduce radiation dose to as low as reasonably achievable (ALARA). [facility]: Dose Right [facility]: CareDose [facility]: Dose Right [facility]: Teradose 4D [facility]: [employer] CONTRAST TYPE AND DOSE: contrast/concentration: Isovue 370.00 mg/ml; Total Contrast Delivered: 99.0 ml; Total Saline Delivered: 65.0 ml RENAL FUNCTION: Creatinine 0.9 BUN 13 RADIATION DOSE: Up-to-date CT equipment and radiation dose reduction techniques were employed. CTDIv ol: 17.3 - 19.7 mGy. DLP: 2001 mGy-cm.. LIMITATIONS: None. FINDINGS: LOWER CHEST: No significant findings. No nodules or infiltrates. LIVER: Normal size. No masses. No dilated ducts. SPLEEN: Normal size. No focal lesions. PANCREAS: No masses. No significant calcifications. No adjacent inflammation or peripancreatic fluid collections. Pancreatic duct not dilated. GALLBLADDER: No identified stones by CT criteria. No inflammatory changes to suggest cholecystitis. ADRENAL GLANDS: No significant masses or asymmetry. RIGHT KIDNEY AND URETER: No solid masses. No significant calcifications. No hydronephrosis or hyd roureter. LEFT KIDNEY AND URETER: No solid masses. No significant calcifications. No hydronephrosis or hydr oureter. AORTA AND VESSELS: No aneurysm. No dissection. Renal arteries, SMA, celiac without stenosis. RETROPERITONEUM: No retroperitoneal adenopathy, hemorrhage or masses. BOWEL AND PERITONEAL CAVITY: No masses or inflammatory changes. No free fluid or peritoneal masses. APPENDIX: Normal. PELVIS: Urinary bladder is normal. Uterus is absent. There is no adnexal mass or fluid collection. There is no free fluid ABDOMINAL WALL: No masses. No hernias. BONES: Mild lumbar scoliosis and degenerative disc changes. Mild spondylosis. No acute abnormality. No osseous lesion. OTHER: No other significant finding. IMPRESSION: NO SIGNIFICANT OR ACUTE FINDING IN THE ABDOMEN OR PELVIS ON CT SCAN WITH IV CONTRAST. O SSEOUS FINDINGS DESCRIBED. TECHNICAL DOCUMENTATION: JOB ID: [id number] Quality ID # [id number]: Final reports with documentation of one or more dose reduction techniques (e.g., Au tomated exposure control, adjustment of the mA and/or kV according to patient size, use of iterative reconstruction technique) 2010 [employer]- All Rights Reserved
[2017-05-15 12:54] VITALS: BP 124/86
== END 2017-05-15 13:19 | disposition home or self-care (01) ==
LOC: ER 08:09
DX: J40 Bronchitis, not specified as acute or chronic (principal); R10.9 Unspecified abdominal pain; R11.2 Nausea with vomiting, unspecified; F31.9 Bipolar disorder, unspecified; E78.00 Pure hypercholesterolemia, unspecified; Z90.710 Acquired absence of both cervix and uterus; Z88.6 Allergy status to analgesic agent; Z91.040 Latex allergy status; Z87.442 Personal history of urinary calculi
CPT/HCPCS: 99284; 96361; 96374; 36415; 83690; 85025; 80053; 81001; 71020; 74177; J2405; J7030

== ENCOUNTER 2017-05-17 07:39 | Outpatient (CLI) | payer MEDICAID ==
[2017-05-17 08:34] VITALS: BP 142/78
== END 2017-05-17 11:55 | disposition home or self-care (01) ==
LOC: II 07:39 → 5TH 07:46 → II 11:55
PROVIDERS: ATTEND Internal Medicine
PROC: 3E033GC Introduction of Other Therapeutic Substance into Peripheral Vein, Percutaneous Approach (ICD-10-PCS; principal; 2017-05-17)
DX: D50.9 Iron deficiency anemia, unspecified (principal); K90.9 Intestinal malabsorption, unspecified
CPT/HCPCS: 96365; J7050; J1439

== ENCOUNTER → 2017-06-21 | Outpatient (CLI) | payer MEDICAID ==
[2017-06-21 08:40] LABS: HEMATOCRIT 42.2 % (36.0-47.0); HEMOGLOBIN 14.5 g/dL (12.0-15.5); HGB HCT DIFFERENCE 1.3; MEAN CORPUSCULAR HEMOGLOBIN 33.8 pg (27.0-33.4); MEAN CORPUSCULAR HGB CONC 34.4 g/dL (32.0-36.0); MEAN CORPUSCULAR VOLUME 98 fl (80-97); RED CELL DISTRIBUTION WIDTH 14.7 % (11.5-14.0); WHITE BLOOD COUNT 6.2 10^3/uL (4.0-10.5)
[2017-06-21 09:06] LABS: ALANINE AMINOTRANSFERASE 35 U/L (9-52); ALBUMIN 4.2 g/dL (3.5-5.0); ALKALINE PHOSPHATASE 116 U/L (38-126); ANION GAP 12 (5-19); ASPARTATE AMINO TRANSFERASE 22 U/L (14-36); BILIRUBIN,DIRECT 0.3 mg/dL (0.0-0.4); BILIRUBIN,TOTAL 0.5 mg/dL (0.2-1.3); BLOOD UREA NITROGEN 8 mg/dL (7-20); CALCIUM 9.5 mg/dL (8.4-10.2); CARBON DIOXIDE 22 mmol/L (22-30); CHLORIDE 110 mmol/L (98-107); CREATININE RESULT 0.97 mg/dL (0.52-1.25); GLUCOSE 114 mg/dL (75-110); SODIUM 143.9 mmol/L (137-145); TOTAL PROTEIN 6.9 g/dL (6.3-8.2); TRIGLYCERIDES 140 mg/dL (<150)
[2017-06-21 09:17] LABS: DIRECT LDL 163 mg/dL (<100)
[2017-06-21 09:35] LABS: THYROID STIMULATING HORMONE 2.08 uIU/mL (0.47-4.68)
== END ==
LOC: LAB 07:57
PROVIDERS: ATTEND Psychiatry & Neurology Psychiatry
DX: F31.4 Bipolar disorder, current episode depressed, severe, without psychotic features (principal); Z79.899 Other long term (current) drug therapy
CPT/HCPCS: 36415; 80048; 80076; 83036; 83721; 84439; 84443; 84478; 85027

== ENCOUNTER → 2017-06-27 | Outpatient (CLI) | payer MEDICAID ==
--- NOTE | 2017-06-27 18:00 | WOMENS IMAGING REPORT ---
EXAM DESCRIPTION: BILAT SCREENING MAMMO W/CAD COMPLETED DATE/TIME: 06/27/2017 7:50 am REASON FOR STUDY: SCREENING MAMMO Z12.31 ENCNTR SCREEN MAMMOGRAM FOR MALIGNANT NEOPLASM OF SHAHEEN COMPARISON: None. TECHNIQUE: Standard craniocaudal and mediolateral oblique views of each breast recorded using digita l acquisition. LIMITATIONS: None. FINDINGS: No masses, calcifications or architectural distortion. No areas of suspicion. Read with the assistance of CAD. .[facility] - R2 Cenova Version 1.3 .[facility] Imaging - R2 Cenova Version 1.3 .[facility] - R2 Cenova Version 2.4 .[facility] [place] - R2 Cenova Version 2.4 .[facility] - R2 [employer]ician Version 9.2 IMPRESSION: NORMAL MAMMOGRAM. BIRADS 1. BREAST DENSITY: b. There are scattered areas of fibroglandular density. BIRAD: 1 NEGATIVE RECOMMENDATION: ROUTINE SCREENING Please consider bilateral screening tomosynthesis in June 2018 COMMENT: The patient has been notified of the results by letter per SA requirements. Additional no tification policies are in place for contacting patient with suspicious or incomplete findings. Quality ID #[id number]: The [employer] recommends an annual screening mammogram for women aged 40 years or over. This facility utilizes a reminder system to ensure that all patients receive reminder letters, and/or direct phone calls for appointments. This includes reminders for routine scr eening mammograms, diagnostic mammograms, or other Breast Imaging Interventions when appropriate. Th is patient will be placed in the appropriate reminder system. The [employer] (ACR) has developed recommendations for screening MRI of the breast s in certain patient populations, to be used in conjunction with mammography. Breast MRI surveillanc e may be appropriate for women with more than 20% lifetime risk of developing breast cancer as deter mined by genetic testing, significant family history of the disease, or history of mantle radiation f or Hodgkins Disease. ACR Practice Guidelines 2008. TECHNICAL DOCUMENTATION: FINDING NUMBER: (1) ASSESSMENT: (1) JOB ID: [id number] [employer]- All Rights Reserved
== END ==
LOC: WI 07:07
PROVIDERS: ATTEND Obstetrics & Gynecology
DX: Z12.31 Encounter for screening mammogram for malignant neoplasm of breast (principal)
CPT/HCPCS: 77067; G0202

== ENCOUNTER → 2017-07-02 | Outpatient (CLI) | payer MEDICAID ==
--- NOTE | 2017-07-02 15:50 | RADIOLOGY REPORT (SQ) ---
EXAM DESCRIPTION: NM HIDA SCAN WITH CCK COMPLETED DATE/TIME: 07/02/2017 3:37 pm REASON FOR STUDY: OTHER SPECIFIED DISEASES OF GALLBLADDER (K82.8) K82.8 OTHER SPECIFIED DISEASES OF GALLBLADDER COMPARISON: None. RADIONUCLIDE AND DOSE: DOSAGE RADIONUCLIDE: 4.9 millicuries Tc99m Mebrofenin. DOSAGE CCK: 1.8 micrograms. DOSAGE MORPHINE: Not required. The route of agent administration: Intravenous TECHNIQUE: Serial imaging right upper quadrant up to 60 minutes following injection of radionuclide. CCK injected after gallbladder visualized. LIMITATIONS: None. FINDINGS: LIVER: Normal visualization without areas of photopenia. INTRAHEPATIC BILE DUCTS: Normal size and no delay in visualization. COMMON BILE DUCT: Normal without dilatation. GALLBLADDER: Normal visualization. Calculated ejection fraction of 75%. Normal range is greater th an 35%. PHYSICAL RESPONSE: Patients presenting complaint was reproduced. OTHER: No other significant finding. IMPRESSION: Normal HIDA. Normal ejection fraction. Patient was symptomatic. TECHNICAL DOCUMENTATION: JOB ID: [id number] [employer]- All Rights Reserved
== END ==
LOC: RAD 12:33
PROVIDERS: ATTEND Internal Medicine
DX: K82.8 Other specified diseases of gallbladder (principal)
CPT/HCPCS: 78227; A9537; J2805